=== PATIENT | female | born 1965 | race American Indian/Alaskan Native ===

== ENCOUNTER 2020-11-07 15:11 | Emergency (ER) | payer BC ==
--- NOTE | 2020-11-07 16:22 | Emergency Department Report ---
HPI - General Chief Complaint: Arrhythmia/Palpitations Time Seen by Provider: 11/07/20 16:07 - HPI HPI: Room 19 The patient is a 55-year-old female present with a chief complaint of palpitations. Patient states her symptoms began 1 week ago when she developed mild palpitations, dizziness and feeling as though her throat was irritated. The patient states she went to see her primary physician was given a Z-Leonidas, steroid shot and sent home on a Medrol taper which the patient states she has been taking. The patient states yesterday she developed pleuritic back pain and the palpitations seem to have worsened. Patient denies chest pain. Patient stat es she is not certain if she feels short of breath with her symptoms but denies history of fever. Patient denies any recent flights or long car trips ED Past Medical Hx - Past Medical History Hx GERD: Yes - Surgical History Additional Surgical History: , uterine laparoscopy, hemorrhoidectomy - Family History Family history: no significant - Social History Smoking Status: Former Smoker (None x30 years) Substance Use Type: None (Denies illicit drug use), Alcohol (Occasional) - Medications Home Medications: Home Medications Medication Instructions Recorded Confirmed Last Taken Type Ibuprofen [Motrin 800 MG tab] 800 mg PO Q8HR PRN #20 tablet 11/07/20 Unknown Rx traMADoL [Ultram] 50 mg PO Q6HR PRN #10 tablet 11/07/20 Unknown Rx ED Review of Systems ROS: Stated complaint: PALPATATION Other details as noted in HPI Constitutional: denies: fever Eyes: denies: eye pain ENT: throat pain Respiratory: cough Cardiovascular: denies: chest pain Endocrine: no symptoms reported Gastrointestinal: nausea Genitourinary: denies: dysuria Musculoskeletal: back pain Neurological: denies: headache Physical Exam - Physical Exam Vital Signs: Laboratory Tests 11/07/20 11/07/20 11/07/20 16:32 16:32 16:32 WBC 7.8 RBC 4.54 Hgb 13.8 Hct 40.6 MCV 89 MCH 30 MCHC 34 RDW 13.0 L Plt Count 262 Lymph % (Auto) 31.3 [place] % (Auto) 9.1 H Eos % (Auto) 0.3 Baso % (Auto) 0.8 Lymph # (Auto) 2.4 [place] # (Auto) 0.7 Eos # (Auto) 0.0 Baso # (Auto) 0.1 Seg Neutrophils % 58.5 Seg Neutrophils # 4.5 D-Dimer > 19022 H Sodium 136 L Potassium 4.2 Chloride 97.4 L Carbon Dioxide 29 Anion Gap 14 BUN 13 Creatinine 0.8 Estimated GFR > 60 BUN/Creatinine Ratio 16 Glucose 101 H Calcium 10.0 Magnesium 2.50 H Total Creatine Kinase 116 CK-MB (CK-2) < 1.0 CK-MB (CK-2) Rel Index 0.8 Troponin T < 0.010 TSH Free T4 11/07/20 16:32 WBC RBC Hgb Hct MCV MCH MCHC RDW Plt Count Lymph % (Auto) [place] % (Auto) Eos % (Auto) Baso % (Auto) Lymph # (Auto) [place] # (Auto) Eos # (Auto) Baso # (Auto) Seg Neutrophils % Seg Neutrophils # D-Dimer Sodium Potassium Chloride Carbon Dioxide Anion Gap BUN Creatinine Estimated GFR BUN/Creatinine Ratio Glucose Calcium Magnesium Total Creatine Kinase CK-MB (CK-2) CK-MB (CK-2) Rel Index Troponin T TSH 0.502 Free T4 0.85 Physical Exam: GENERAL: The patient is well-developed well-nourished female lying on stretcher not appearing to be in acute distress. [] HEENT: Normocephalic. Atraumatic. Extraocular motions are intact. Patient has moist mucous membranes. NECK: Supple. Trachea midline CHEST/LUNGS: Clear to auscultation. There is no respiratory distress noted. HEART/CARDIOVASCULAR: Regular. There is no tachycardia. There is no gallop rub or murmur. ABDOMEN: Abdomen is soft, nontender. Patient has normal bowel sounds. There is no abdominal distention. SKIN: There is no rash. There is no edema. There is no diaphoresis. NEURO: The patient is awake, alert, and oriented. The patient is cooperative. The patient has no focal neurologic deficits. The patient has normal speech. GCS 15 MUSCULOSKELETAL:There is no evidence of acute injury. ED Medical Decision Making - Lab Data Result diagrams: 11/07/20 16:32 11/07/20 16:32 Laboratory Tests 11/07/20 11/07/20 11/07/20 16:32 16:32 16:32 WBC 7.8 RBC 4.54 Hgb 13.8 Hct 40.6 MCV 89 MCH 30 MCHC 34 RDW 13.0 L Plt Count 262 Lymph % (Auto) 31.3 [place] % (Auto) 9.1 H Eos % (Auto) 0.3 Baso % (Auto) 0.8 Lymph # (Auto) 2.4 [place] # (Auto) 0.7 Eos # (Auto) 0.0 Baso # (Auto) 0.1 Seg Neutrophils % 58.5 Seg Neutrophils # 4.5 D-Dimer > 82648 H Sodium 136 L Potassium 4.2 Chloride 97.4 L Carbon Dioxide 29 Anion Gap 14 BUN 13 Creatinine 0.8 Estimated GFR > 60 BUN/Creatinine Ratio 16 Glucose 101 H Calcium 10.0 Magnesium 2.50 H Total Creatine Kinase 116 CK-MB (CK-2) < 1.0 CK-MB (CK-2) Rel Index 0.8 Troponin T < 0.010 TSH Free T4 11/07/20 16:32 WBC RBC Hgb Hct MCV MCH MCHC RDW Plt Count Lymph % (Auto) [place] % (Auto) Eos % (Auto) Baso % (Auto) Lymph # (Auto) [place] # (Auto) Eos # (Auto) Baso # (Auto) Seg Neutrophils % Seg Neutrophils # D-Dimer Sodium Potassium Chloride Carbon Dioxide Anion Gap BUN Creatinine Estimated GFR BUN/Creatinine Ratio Glucose Calcium Magnesium Total Creatine Kinase CK-MB (CK-2) CK-MB (CK-2) Rel Index Troponin T TSH 0.502 Free T4 0.85 - EKG Data -: EKG Interpreted by [place] EKG shows normal: sinus rhythm Rate: bradycardia (59 bpm) - EKG Data When compared to previous EKG there are: previous EKG unavailable Interpretation: LVH - Radiology Data Radiology results: report reviewed (CT chest), image reviewed (CT chest) [address] [address] Cat Scan Report Signed Patient: CHRISTIANE VELAZQUEZ MR#: [id number] : 1965 Acct:[id number] Age/Sex: 55 / F ADM Date: 11/07/20 Loc: ED Attending Dr: Ordering Physician: JT JACOBO MD Date of Service: 11/07/20 Procedure(s): CT angio chest Accession Number(s): [id number] cc: JT JACOBO MD CTA CHEST WITH IV CONTRAST INDICATION: Pleurisy, palpitations. TECHNIQUE: Axial CT images were obtained through the chest after injection of 100 mL Omnipaque 350 IV contrast. 3 plane MIP reconstructions were produced. All CT scans at this location are performed using CT dose reduction for ALARA by means of automated exposure co ntrol. COMPARISON: None available. FINDINGS: Pulmonary Arteries: No pulmonary emboli. Lungs: No acute findings. Calcified granuloma in the medial left upper lobe. Trachea and Bronchi: No significant abnormality. Heart and Pericardium: No significant abnormality. Vasculature: No significant abnormality. Lymphatics: No lymphadenopathy. Additional Findings: None. Upper Abdomen: No acute findings. Skeletal Structures: No acute findings or aggressive bone lesions. IMPRESSION: 1. No CT evidence for pulmonary embolism. 2. No acute findings. Signer Name: Deon Archer MD Signed: 11/07/2020 6:49 PM Workstation Name: [id number] Transcribed By: ARIANNA Dictated By: Deon Archer MD Electronically Authenticated By: Deon Archer MD Signed Date/Time: 11/07/201848 DD/ 47 TD/TT: Print Cancel - Differential Diagnosis Dysrhythmia, PE, symptomatic anemia, hyperthyroidism, anxiety Critical care attestation.: If time is entered above; I have spent that time in minutes in the direct care of this critically ill patient, excluding procedure time. ED Disposition Clinical Impression: Palpitations, Pleurisy Disposition: - TO HOME OR SELFCARE Is pt being admited?: No Does the pt Need Aspirin: No Condition: Stable Instructions: Palpitations, [id number] Additional Instructions: Return to the emergency department should you develop worsening symptoms, inability to tolerate food or liquids, high fever or any other concerns Prescriptions: Ibuprofen [Motrin 800 MG tab] 800 mg PO Q8HR PRN #20 tablet PRN Reason: Pain, Moderate (4-6) traMADoL [Ultram] 50 mg PO Q6HR PRN #10 tablet PRN Reason: Pain Referrals: GLENIS DOBBS MD [Staff Physician] - 2-3 Days (Please follow-up with your fabrication department supervisor at [facility] for further evaluation) Time of Disposition: 19:13
[2020-11-07 17:13] LABS: BUN/Creatinine Ratio 16; Blood Urea Nitrogen 13 mg/dL (7-17); Hemolysis Index 8
[2020-11-07 17:22] LABS: Creatine Kinase MB < 1.0 ng/mL (0.0-4.0)
[2020-11-07 17:23] LABS: Basophils # (Auto) 0.1 K/mm3 (0.0-0.1); Basophils % (Auto) 0.8 % (0.0-1.8); Eosinophils % (Auto) 0.3 % (0.0-4.3); Free T4 (Free Thyroxine) 0.85 ng/dL (0.76-1.46); Hematocrit 40.6 % (30.3-42.9); Hemoglobin 13.8 gm/dl (10.1-14.3); Lymphocytes # (Auto) 2.4 K/mm3 (1.2-5.4); Lymphocytes % (Auto) 31.3 % (13.4-35.0); Mean Corpuscular HGB Conc 34 % (30-34); Mean Corpuscular Volume 89 fl (79-97); Monocytes # (Auto) 0.7 K/mm3 (0.0-0.8); Monocytes % (Auto) 9.1 % (0.0-7.3); Platelet Count 262 K/mm3 (140-440); Red Blood Count 4.54 M/mm3 (3.65-5.03)
[2020-11-07] MEDS ORDERED: LORazepam 2 MG/ML VIAL IV ONE (18:12)
--- NOTE | 2020-11-07 18:53 | Cat Scan Report ---
CTA CHEST WITH IV CONTRAST INDICATION: Pleurisy, palpitations. TECHNIQUE: Axial CT images were obtained through the chest after injection of 100 mL Omnipaque 350 IV contrast. 3 plane MIP reconstructions were produced. All CT scans at this location are performed using CT dose reduction for ALARA by means of automated exposure control. COMPARISON: None available. FINDINGS: Pulmonary Arteries: No pulmonary emboli. Lungs: No acute findings. Calcified granuloma in the medial left upper lobe. Trachea and Bronchi: No significant abnormality. Heart and Pericardium: No significant abnormality. Vasculature: No significant abnormality. Lymphatics: No lymphadenopathy. Additional Findings: None. Upper Abdomen: No acute findings. Skeletal Structures: No acute findings or aggressive bone lesions. IMPRESSION: 1. No CT evidence for pulmonary embolism. 2. No acute findings. Signer Name: Deon Archer MD Signed: 11/07/2020 6:49 PM Workstation Name: [id number]
[2020-11-07 20:31] VITALS: BP 117/60
--- NOTE | 2020-11-12 12:03 | Electrocardiograph Report ---
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
== END 2020-11-07 20:31 | disposition home or self-care (01) ==
LOC: ED 15:11
DX: R00.2 Palpitations (principal); R07.81 Pleurodynia; Z98.890 Other specified postprocedural states; Z87.891 Personal history of nicotine dependence; Z72.89 Other problems related to lifestyle; Z79.899 Other long term (current) drug therapy
CPT/HCPCS: 36415; 71275; 80048; 82550; 82553; 83735; 84439; 84443; 84484; 85025; 85379; 96374; 99284; J2060; Q9967; 93005

== ENCOUNTER 2020-11-09 10:21 | Emergency (ER) | payer BC ==
[2020-11-09 12:56] LABS: Basophils # (Auto) 0.1 K/mm3 (0.0-0.1); Basophils % (Auto) 1.1 % (0.0-1.8); Eosinophils # (Auto) 0.1 K/mm3 (0.0-0.4); Eosinophils % (Auto) 1.5 % (0.0-4.3); Hematocrit 41.9 % (30.3-42.9); Hemoglobin 14.5 gm/dl (10.1-14.3); Lymphocytes # (Auto) 2.2 K/mm3 (1.2-5.4); Lymphocytes % (Auto) 33.6 % (13.4-35.0); Mean Corpuscular HGB Conc 35 % (30-34); Mean Corpuscular Volume 89 fl (79-97); Monocytes # (Auto) 0.6 K/mm3 (0.0-0.8); Monocytes % (Auto) 8.6 % (0.0-7.3); Platelet Count 284 K/mm3 (140-440); Red Cell Distribution Width 13.1 % (13.2-15.2)
--- NOTE | 2020-11-09 13:16 | XRay Report ---
CHEST 2 VIEWS INDICATION / CLINICAL INFORMATION: Chest Pain. COMPARISON: 05/16/18 FINDINGS: SUPPORT DEVICES: None. HEART / MEDIASTINUM: No significant abnormality. LUNGS / PLEURA: No significant pulmonary or pleural abnormality. No pneumothorax. ADDITIONAL FINDINGS: No significant additional findings. IMPRESSION: 1. No acute findings. No change. Signer Name: Rocky Grijalva MD Signed: 11/09/2020 1:11 PM Workstation Name: [id number]
[2020-11-09 13:39] LABS: Alanine Aminotransferase 53 units/L (7-56); Albumin 4.7 g/dL (3.9-5); Blood Urea Nitrogen 10 mg/dL (7-17); Calcium 9.8 mg/dL (8.4-10.2); Hemolysis Index 13
[2020-11-09 13:51] LABS: BUN/Creatinine Ratio 14
--- NOTE | 2020-11-09 14:39 | Emergency Department Report ---
ED Palpitations HPI - General Chief Complaint: Chest Pain Stated Complaint: CHEST DISCOMFORT, PALPITATIONS, BACK PAIN Time Seen by Provider: 11/09/20 14:17 Source: patient Mode of arrival: Ambulatory Limitations: No Limitations - History of Present Illness Initial Comments: Chief complaint palpitations HPI: This is a 55-year-old female with history of PTSD, palpitations, GERD hyper hypothyroidism and anxiety who presents with frequent palpitations over the last 3 days. She was evaluated by ED physician 2 days ago at this facility. Patient has intermittent palpitations. She has dull central back pain. She denies shortness of breath. Intermittent symptoms. Previously, she underwent Holter monitoring, echocardiogram, and stress test when she was being evaluated for palpitations. Her cardiology group is [facility]. She was initially ev aluated [facility] every 6 months. Now she is evaluated by cardiology on an annual basis. She stated that the palpitations just went away. She did not require any medication. She does not know her diagnosis. She does not know if she experienced cardiac arrhythmia. I reviewed electronic record. CT chest angiogram ruled out pulmonary embolism. Troponin was negative at that time. EKG was normal at that time. MD Complaint: palpitations -: days(s) (2 days of palpitations) Context: occured during rest Arrythmia History: other (Previous history of palpitations evaluated with a Holter monitor echocardiogram stress test) Associated Symptoms: other (Intermittent back pain) - Related Data Previous Rx's Medication Instructions Recorded Last Taken Type Ibuprofen [Motrin 800 MG tab] 800 mg PO Q8HR PRN #20 tablet 11/07/20 Unknown Rx traMADoL [Ultram] 50 mg PO Q6HR PRN #10 tablet 11/07/20 Unknown Rx Allergies Allergy/AdvReac Type Severity Reaction Status Date / Time No Known Allergies Allergy Unverified 11/07/20 15:45 ED Review of Systems ROS: Stated complaint: CHEST DISCOMFORT, PALPITATIONS, BACK PAIN Other details as noted in HPI Comment: All other systems reviewed and negative Constitutional: denies: fever, malaise Respiratory: denies: cough, shortness of breath Cardiovascular: palpitations. denies: chest pain ED Past Medical Hx - Past Medical History Previous Medical History?: Yes Hx GERD: Yes Additional medical history: hypothyroidism and anxiety - Surgical History Past Surgical History?: Yes Additional Surgical History: , uterine laparoscopy, hemorrhoidectomy - Social History Smoking Status: Former Smoker (None x30 years) Substance Use Type: None (Denies illicit drug use), Alcohol (Occasional) - Medications Home Medications: Home Medications Medication Instructions Recorded Confirmed Last Taken Type Ibuprofen [Motrin 800 MG tab] 800 mg PO Q8HR PRN #20 tablet 11/07/20 Unknown Rx traMADoL [Ultram] 50 mg PO Q6HR PRN #10 tablet 11/07/20 Unknown Rx ED Physical Exam - General Limitations: No Limitations General appearance: alert, in no apparent distress - Head Head exam: Present: atraumatic, normocephalic - Eye Eye exam: Present: normal appearance - ENT ENT exam: Present: mucous membranes moist - Neck Neck exam: Present: normal inspection, full ROM - Respiratory Respiratory exam: Present: normal lung sounds bilaterally. Absent: respiratory distress, wheezes, rales, rhonchi, stridor - Cardiovascular Cardiovascular Exam: Present: regular rate, normal rhythm, normal heart sounds. Absent: systolic murmur, diastolic murmur, rubs, gallop - GI/Abdominal GI/Abdominal exam: Present: soft, normal bowel sounds. Absent: distended, t enderness, guarding, rebound - Extremities Exam Extremities exam: Present: normal inspection - Neurological Exam Neurological exam: Present: alert, oriented X3 - Psychiatric Psychiatric exam: Present: normal affect, anxious - Skin Skin exam: Present: warm, dry, intact, normal color. Absent: rash ED Course Vital Signs 11/09/20 11:52 Temperature 98.3 F Pulse Rate 67 Respiratory 18 Rate Blood Pressure 163/55 [Right] O2 Sat by Pulse 100 Oximetry ED Medical Decision Making - Lab Data Result diagrams: 11/09/20 12:39 11/09/20 12:39 - EKG Data -: EKG Interpreted by Me EKG shows normal: sinus rhythm, axis, intervals, QRS complexes, ST-T waves Rate: normal - EKG Data Interpretation: normal EKG 11/09/20 14:35 EKG obtained 1435 EKG interpreted by me Normal sinus rhythm normal rate normal axis normal intervals no ST elevation no ST-T signs of ischemia normal EKG - Radiology Data Radiology results: report reviewed [facility] [address] [place] [address] XRay Report Signed Patient: CHRISTIANE VELAZQUEZ MR#: [id number] : 1965 Acct:[id number] Age/Sex: 55 / F ADM Date: 11/09/20 Loc: ED Attending Dr: Ordering Physician: BLANCA MOYA Date of Service: 11/09/20 Procedure(s): XR chest routine 2V Accession Number(s): [id number] cc: BLANCA MOYA Fluoro Time In Minutes: CHEST 2 VIEWS INDICATION / CLINICAL INFORMATION: Chest Pain. COMPARISON: 05/16/18 FINDINGS: SUPPORT DEVICES: None. HEART / MEDIASTINUM: No significant abnormality. LUNGS / PLEURA: No significant pulmonary or pleural abnormality. No pneumothorax. ADDITIONAL FINDINGS: No significant additional findings. IMPRESSION: 1. No acute findings. No change. Signer Name: Rocky Grijalva MD Signed: 11/09/2020 1:11 PM Workstation Name: [id number] Transcribed By: JUSTIN Dictated By: Brian Grijalva MD Electronically Authenticated By: Brian Grijalva MD Signed Date/Time: 11/09/201310 DD/ 10 TD/TT: - Medical Decision Making This is a 55-year-old female with history of PTSD, hypothyroidism, GERD, anxiety who presents with intermittent palpitations. Palpitations most prominent at rest. Pulmonary embolism ruled out with CT angiogram of the chest 2 days ago. ACS ruled out with 2 negative troponin values over the last 2 days. Differential diagnosis includes PVC, atrial fibrillation, anxiety, discomfort associated with mitral valve prolapse normal evaluation today heart rate 60 on EKG CBC chemistry within normal limits magnesium within normal limits, TSH free T4 on October 28 team just 2 days ago were both within normal limits. Only abnormality D-dimer elevation I spoke with annealing oven operator Dr. Smith. He reviewed patient's outpatient chart. She has had normal EKGs dating back to 2014. Holter monitor 3 years ago was unremarkable normal. Stress test and echo also negative urine have thereafter. Patient's symptoms palpitation improved with treatment of thyroid disease. I recommended evaluation by PCP Dr. Espinoza Flores. Patient is discharged home. Critical care attestation.: If time is entered above; I have spent that time in minutes in the direct care of this critically ill patient, excluding procedure time. ED Disposition Clinical Impression: Palpitations, Thyroid disease Disposition: - TO HOME OR SELFCARE Is pt being admited?: No Does the pt Need Aspirin: No Condition: Stable Instructions: Palpitations, [id number] Referrals: ESPINOZA FLORES JR, MD [Staff Physician] - 3-5 Days
[2020-11-09 15:32] VITALS: BP 169/98
== END 2020-11-09 15:33 | disposition home or self-care (01) ==
LOC: ED 10:21
DX: R00.2 Palpitations (principal); E07.9 Disorder of thyroid, unspecified; K21.9 Gastro-esophageal reflux disease without esophagitis; Z98.890 Other specified postprocedural states; Z87.891 Personal history of nicotine dependence; Z72.89 Other problems related to lifestyle; Z79.899 Other long term (current) drug therapy
CPT/HCPCS: 36415; 71046; 80053; 82550; 83735; 83880; 84484; 85025; 93005; 99284